=== PATIENT | male | born 1955 | race Caucasian/White ===

== ENCOUNTER 2018-08-13 01:49 | Inpatient (IN) | payer OTHER ==
[2018-08-13] VITALS (11 sets, daily range): BP systolic 118–155; BP diastolic 79–92
[~2018-08-13] VITALS: Ht 177.8 cm; Wt 79.4 kg
[~2018-08-13 01:49] MED LIST: BUPR-474 PO; CELE-1 PO; GABA-488 PO; OMEP-218 PO; OXYC-865 PO; TRAM-420 PO
[2018-08-13] MEDS ORDERED: LIDOCAINE/SOD BICARB 8.4% SYR ID ONE (12:00)
[2018-08-13] MEDS ORDERED: PREGABALIN 150 MG CAPSULE PO ONE (12:00)
[2018-08-13] MEDS ORDERED: MIDAZOLAM 2 MG/2 ML VIAL IVP PRN (12:00)
[2018-08-13] MEDS ORDERED: ACETAMINOPHEN 500 MG TAB PO ONE (12:00)
[2018-08-13] MEDS ORDERED: ceFAZolin(*) 2GM/D5W 50ML 50 ML IVPB ONE (12:00)
[2018-08-13] MEDS ORDERED: NORMOSOL R SOLN(*) 1000 ML BAG 1,000 ML IV PRN (12:00)
[2018-08-13] MEDS ORDERED: REMIFENTANIL HCL 1 MG VIAL ONE (12:39)
[2018-08-13] MEDS ORDERED: ROCURONIUM BROM 10 MG/ML 5 ML ONE (13:40)
[2018-08-13] MEDS ORDERED: DEXAMETHASONE SOD 4 MG/ML VIAL ONE (16:53)
[2018-08-13] MEDS ORDERED: PROPOFOL EMUL 10 MG/ML ONE (16:53)
[2018-08-13] MEDS ORDERED: PHENYLEPHRINE/NS/PF 0.4MG/10ML ONE (16:53)
[2018-08-13] MEDS ORDERED: ONDANSETRON 4 MG/2 ML VIAL ONE (16:53)
[2018-08-13] MEDS ORDERED: HYDROmorphone HCL 2 MG/ML SDV ONE ×2 (16:55→17:22)
[2018-08-13] MEDS ORDERED: FLUSH 10 ML SYR IVP PRN (18:40)
[2018-08-13] MEDS ORDERED: ACETAMINOPHEN 500 MG TAB PO PRN (18:40)
[2018-08-13] MEDS ORDERED: HYDROmorphone HCL 2 MG/ML SDV IVP PRN (18:40)
[2018-08-13] MEDS ORDERED: BENZOCAINE/MENTHOL 1 EACH LOZG PO PRN (18:40)
[2018-08-13] MEDS ORDERED: diphenhydrAMINE 25 MG CAP PO PRN (18:40)
[2018-08-13] MEDS ORDERED: LR(*) 1000 ML BAG 1,000 ML IV PRN (18:40)
[2018-08-13] MEDS ORDERED: ONDANSETRON 4 MG/2 ML VIAL IVP PRN (18:40)
[2018-08-13] MEDS ORDERED: BISACODYL 10 MG SUPP PR PRN (18:40)
[2018-08-13] MEDS ORDERED: MAGNESIUM HYDROXIDE* 30ML UDCP PO PRN (18:40)
[2018-08-13] MEDS ORDERED: ACETAMINOPHEN(*)1000 MG/100 ML 100 ML IVPB PRN (18:40)
[2018-08-13] MEDS ORDERED: fentaNYL CITR 100 MCG/2 ML AMP ONE (18:44)
[2018-08-13] MEDS: oxyCODONE HCL 5 MG CAP PO PRN (20:39)
[2018-08-13] MEDS ORDERED: GABA300S PO (20:46)
[2018-08-13] MEDS ORDERED: GABA-549 PO (21:09)
--- NOTE | 2018-08-13 21:15 | Hospitalist Progress Note ---
Subjective Progress Notes Subjective Patient seen post-op. Reviewed PMHx and medications. At present, he reports pain in the surgical site. He denies CP/SOB/N/V. Physical Exam Vital Signs Date Time Temp Pulse Resp B/P (MAP) Pulse Ox O2 Delivery O2 Flow Rate FiO2 08/13/18 20:27 97.8 83 18 155/92 (113) 94 Nasal Cannula 2.0 General Appearance: Alert, Awake Cardiovascular: Regular Rate and Rhythm Respiratory: Clear to Auscultation Assessment and Plan Problems: (1) GERD (gastroesophageal reflux disease) Status: Chronic Assessment & Plan: Will continue PPI therapy - Protonix while at [facility] (omeprazole not on formulary). (2) Depression Status: Chronic Assessment & Plan: Continue Wellbutrin XL 300mg daily. (3) Chronic pain Status: Chronic Assessment & Plan: He has been managed with gabapentin 600mg PO TID, but has been taking more as PRN. He wished to have this continue and more on a scheduled basis for now. SALOME DECKER MD Aug 13, 2018 21:15
[2018-08-13] MEDS ORDERED: NS(*) 0.9% 250 ML BAG 250 ML ONE (21:43)
[2018-08-13] MEDS: DOCUSATE SODIUM 100 MG CAP PO SCH (21:44)
[2018-08-13] MEDS: GABAPENTIN 300 MG CAP PO SCH (21:44)
[2018-08-13] MEDS: ceFAZolin(*) 2GM/D5W 50ML 50 ML IVPB SCH (21:45)
[2018-08-13] MEDS: APAP/HYDROCODONE 325/5 TAB PO PRN (22:00)
--- NOTE | 2018-08-13 22:57 | RADIOLOGY IMAGING REPORT ---
FACILITY: [facility] PATIENT NAME: Aki Eldridge : 1955 MR: [id number] V: [id number] EXAM DATE: [id number] ORDERING PHYSICIAN: RAJAN SHERIFF TECHNOLOGIST: Location: [facility] Patient: Aki Eldridge : 1955 Visit/Account:[id number] Date of Sevice: 08/13/2018 EXAMINATION: Intraoperative fluoroscopic images of the lumbosacral spine. HISTORY: Spondylosis. COMPARISON: Lumbar spine MRI 07/11/2018. FINDINGS: 4 fluoroscopic images of the lumbosacral spine were obtained in the OR during transforaminal lumbar i nterbody fusion. Images show placement of fusion hardware posteriorly across the L4-S1 levels, with interbody fusion d evices at L4-5 and L5-S1. 389.6 of fluoroscopy time was utilized during the procedure. Cumulative Dose DAP: 3.67 mGy*m^2 IMPRESSION: Intraprocedural images as described, please see procedure report for additional detail. Report Dictated By: Alexandre Connell MD at 08/13/2018 10:51 PM Report E-Signed By: Alexandre Connell MD at 08/13/2018 10:54 PM WSN:[id number]
[2018-08-13] MEDS: DIAZEPAM 5 MG TAB PO PRN (23:10)
[2018-08-14] VITALS (10 sets, daily range): BP systolic 93–156; BP diastolic 45–88; Ht 177.8 cm; Wt 79.4 kg
[2018-08-14] MEDS: APAP/HYDROCODONE 325/5 TAB PO PRN ×5 (02:00→20:51)
[2018-08-14] MEDS: ceFAZolin(*) 2GM/D5W 50ML 50 ML IVPB SCH ×2 (04:42→13:00)
[2018-08-14] MEDS: oxyCODONE HCL 5 MG CAP PO PRN ×2 (04:42→15:55)
[2018-08-14] MEDS: DIAZEPAM 5 MG TAB PO PRN ×2 (05:26→14:21)
[2018-08-14] MEDS: PANTOPRAZOLE SOD 40 MG TABEC PO SCH (08:28)
[2018-08-14] MEDS: GABAPENTIN 300 MG CAP PO SCH ×3 (08:28→20:27)
[2018-08-14] MEDS: buPROPion XL 150 MG TABCR PO SCH (08:28)
[2018-08-14] MEDS: DOCUSATE SODIUM 100 MG CAP PO SCH ×2 (08:29→20:51)
[2018-08-14] MEDS ORDERED: DIAZ-303 PO (08:38)
[2018-08-14] MEDS ORDERED: DOCU240C84 PO (08:38)
[2018-08-14] MEDS ORDERED: LOR5/325 PO (08:40)
--- NOTE | 2018-08-14 09:56 | Hospitalist Progress Note ---
Subjective Progress Notes Subjective He has complaints of pain to the surgery site. He had no acute events overnight. Patient Complains of: Cardiovascular: No: Chest Pain Respiratory: No: Shortness of Breath Physical Exam Vital Signs Date Time Temp Pulse Resp B/P (MAP) Pulse Ox O2 Delivery O2 Flow Rate FiO2 08/14/18 08:25 98.3 104 18 119/46 (70) 94 Nasal Cannula 1.0 Intake and Output 08/14/18 06:59 Intake Total 2910 ml Output Total 1475 ml Balance 1435 ml Intake Oral 360 ml IV Total 2550 ml Output Urine Total 1475 ml # Voids 1 General Appearance: Alert, Awake, No Acute Distress, Afebrile Neuro: No Gross deficits Cardiovascular: Regular Rate and Rhythm Respiratory: No Respiratory Distress, Clear to Auscultation Psych: Alert & Oriented X3, Appropriate Mood & Affect Assessment and Plan Problems: (1) GERD (gastroesophageal reflux disease) Status: Chronic Assessment & Plan: Will continue PPI therapy - Protonix while at [facility] (omeprazole not on formulary). (2) Depression Status: Chronic Assessment & Plan: Continue Wellbutrin XL 300mg daily. (3) Chronic pain Status: Chronic Assessment & Plan: He has been managed with gabapentin 600mg PO TID, but has been taking more as PRN. He wished to have this continue and more on a scheduled basis for now. Exam Sepsis Risk: No Definite Risk NAYANA BECERRA WEAVER AXMINSTER Aug 14, 2018 09:56
--- NOTE | 2018-08-14 10:44 | RADIOLOGY IMAGING REPORT ---
FACILITY: [facility] PATIENT NAME: Aki Eldridge : 1955 MR: [id number] V: [id number] EXAM DATE: ORDERING PHYSICIAN: RAJAN SHERIFF TECHNOLOGIST: Location: [facility] Patient: Aki Eldridge : 1955 Visit/Account:[id number] Date of Sevice: 08/14/2018 LUMBAR SPINE 2 OR 3 VIEW Indication: Back pain., post op Comparison: None available FINDINGS: There are 5 lumbar type vertebral bodies. There is no acute osseous or acute alignment abnormality. There are posterior fusion changes extending from L4 to S1. Components are well seated and well alig olivia. No abnormalities are noted. The vertebral body heights appear well-maintained. IMPRESSION: 1. Unremarkable L4-S1 posterior fusion Report Dictated By: Jeremiah Raymundo at 08/14/2018 10:33 AM Report E-Signed By: Jeremiah Raymundo at 08/14/2018 10:39 AM WSN:[id number]
[2018-08-15] MEDS: oxyCODONE HCL 5 MG CAP PO PRN (01:19)
[2018-08-15 01:20] VITALS: BP 150/88
[2018-08-15 03:31] VITALS: BP 146/87
[2018-08-15] MEDS: APAP/HYDROCODONE 325/5 TAB PO PRN ×2 (03:36→08:52)
[2018-08-15] MEDS: buPROPion XL 150 MG TABCR PO SCH (08:51)
[2018-08-15] MEDS: DIAZEPAM 5 MG TAB PO PRN (08:52)
[2018-08-15] MEDS: PANTOPRAZOLE SOD 40 MG TABEC PO SCH (08:52)
[2018-08-15] MEDS: DOCUSATE SODIUM 100 MG CAP PO SCH (08:52)
[2018-08-15] MEDS: GABAPENTIN 300 MG CAP PO SCH (08:53)
--- NOTE | 2018-08-15 09:58 | Hospitalist Progress Note ---
Subjective Progress Notes Subjective He has no complaints this morning. He had no acute events overnight. Patient Complains of: Cardiovascular: No: Chest Pain Respiratory: No: Shortness of Breath Physical Exam Vital Signs Date Time Temp Pulse Resp B/P (MAP) Pulse Ox O2 Delivery O2 Flow Rate FiO2 08/15/18 03:31 88 16 146/87 (106) 90 Room Air 08/14/18 23:37 99.0 0.5 Intake and Output 08/15/18 06:59 Intake Total 957 ml Output Total 1900 ml Balance -943 ml Intake Oral 957 ml Output Urine Total 1900 ml # Voids 5 General Appearance: Alert, Awake, No Acute Distress, Afebrile Neuro: No Gross deficits Cardiovascular: Regular Rate and Rhythm Respiratory: No Respiratory Distress, Clear to Auscultation GI: Soft and Non-Tender Psych: Alert & Oriented X3, Appropriate Mood & Affect Assessment and Plan Problems: (1) GERD (gastroesophageal reflux disease) Status: Chronic Assessment & Plan: Will continue PPI therapy - Protonix while at [facility] (omeprazole not on formulary). (2) Depression Status: Chronic Assessment & Plan: Continue Wellbutrin XL 300mg daily. (3) Chronic pain Status: Chronic Assessment & Plan: He has been managed with gabapentin 600mg PO TID, but has been taking more as PRN. He wished to have this continue and more on a scheduled basis for now. Exam Sepsis Risk: No Definite Risk NAYANA BECERRA TRADE MARK ATTORNEY Aug 15, 2018 09:57
--- NOTE | 2018-08-26 16:38 | OPERATIVE REPORT 1 ---
EVENT DATE: August 13, 2018 SURGEON: Lance Rivera MD ANESTHESIOLOGIST: Tino Kang MD ANESTHESIA: General endotracheal anesthesia. PIPE FITTER HELPER: David Carl PA-C PREOPERATIVE DIAGNOSIS Lumbar degenerative disk disease with foraminal stenosis and radiculopathy. POSTOPERATIVE DIAGNOSIS Lumbar degenerative disk disease with foraminal stenosis and radiculopathy. PROCEDURE PERFORMED L4-L5, L5-S1 minimally invasive transforaminal lumbar interbody fusion. INTRAVENOUS FLUIDS 1900 mL ESTIMATED BLOOD LOSS 40 mL IMPLANTS Pedicle screws 6.5 mm x 45 mm from [employer] times four, 6.5 mm x 40 mm pedicle screws from [employer] times two, 80 mm connecting rods times two from [employer], and locking caps from [employer] times six. Size large, 11 mm high curvilinear interbody titanium devices from [employer] times two. INDICATIONS FOR SURGERY Mr. Nelson is a 62-year-old gentleman with a long history of worsening back pain as well as right lower extremity radiating symptoms in an L4 and L5 distribution. He failed physical therapy, medications, injections, etc. His physical examination was significant for antalgic gait favoring the right, but no laurel weakness, and no areas of subjective numbness. His imaging studies showed severe degenerative disk disease at L4-L5 and L5-S1 with significant foraminal stenosis on the right side as well. Some injections gave him temporary relief only, and ultimately secondary to ongoing pain in the back as well as the right lower extremity, he was offered and elected to undergo L4-L5, L5-S1 transforaminal lumbar interbody fusion. Prior to surgery, I explained in detail to the patient the possible risks of surgery. These risks included bleeding, infection, damage to surrounding structures, persistent and/or worsening pain, nerve root injury, spinal fluid leak, meningitis, need for further surgery, , blindness, sexual dysfunction, autonomic nervous system dysfunction, as well as other unforeseen medical and surgical complications. An understanding that spinal surgery is more predictive at improving extremity discomfort than axial spine pain was stressed. DESCRIPTION OF PROCEDURE On the date of surgery, the patient was met in the preoperative hold area, and all questions were answered. His operative site was identified and marked by myself. The patient was then taken to the operating room, and after succumbing to anesthesia, was positioned in the prone position on a Nabeel table. All bony protuberances and soft tissues were well padded in the standard fashion. Care was taken to maintain appropriate perfusion pressures during anesthesia. Preoperative antibiotics were administered according to the appropriate timing schedule. At the conclusion of the procedure, sponge and needle counts were correct times two. A final timeout was undertaken by members of the operating team to confirm correct patient, correct levels, and correct surgery. Fluoroscopy was brought in, and landmarks for placement of percutaneous pedicle screws were marked on the skin. This included the midpoint of the pedicles in the axial plane as well as the lateral borders of the pedicles in the sagittal plane. Once this was complete, the patient was prepped and draped in the standard sterile orthopedic fashion. Bilateral Alanna-type incisions were made and carried down from the skin to the muscle fascia. The muscle fascia was split, and finger dissection was used between the multifidus and longissimus muscles to come down upon the spine and palpate the starting points for pedicle screws at L4, L5, and S1. Fluoroscopy was then brought into the field, and we used Jamshidi needles to cannulate the pedicles bilaterally at L4, L5, and S1. This was accomplished on the right side by docking the Jamshidi needle at the 3 o'clock position on the pedicle on a perfect AP of that particular vertebral body. On the left, the docking point was at the 9 o'clock position. Under fluoroscopic guidance, the Jamshidi needles were advanced through the pedicles, and guidewires were placed. On the right side, we placed taps with appropriate length retractor blades, while on the left side, we actually placed screws with the extended taps. On the right side once we had placed the taps and retractor blades at the L4-L5 level, the retractor was attached, and the disk space was distracted. From the lateral view, we were able to then perform a facetectomy of the L4-L5 facet, exposing the disk space of L4-L5. An annulotomy knife was then used to perform an annulotomy, and then a combination of pituitary rongeurs, janak, and curettes was used to perform a diskectomy at L4-L5. A trial implant was then placed and found to be in good position on AP and lateral views. We selected the appropriate size interbody device, and that was packed with demineralized bone matrix and local bone. This was tapped into the interbody space and then rotated into appropriate position using both AP and lateral fluoroscopy. We then turned our attention to the L5-S1 level, and again after distracting the level with the retractor blades and placing the retractor, a facetectomy was performed. The disk space was identified. An annulotomy was created, and diskectomy was performed in the same manner as described for L4-L5. A second interbody device was selected and placed, and imaging studies showed excellent positioning. Retractor blades were removed, and wires were used to replace the taps at L4, L5, and S1 on the right with appropriate length screws. Once this was complete, we measured for the appropriate length of connecting rods, and connecting rods were then placed in a minimally invasive fashion. Locking caps were placed in all pedicle screws, securing the rods into the tulips. Breakoff device was then used to snap off the extended taps of all screws after final tightening had been accomplished. Final AP and lateral x-rays showed excellent placement of the interbody devices as well as the pedicle screws. The wounds were then irrigated with copious sterile saline solution and then closed in layers using interrupted sutures for the deep fascia, inverted interrupted sutures for the subcutaneous tissue, and a running subcuticular skin stitch. Sponge and needle counts were correct times two. POSTOPERATIVE CARE PLAN The patient will remain in the hospital until he meets discharge criteria. He will be discharged home with instructions to follow up in two weeks' time. SHANICE
== END 2018-08-15 10:30 | disposition home or self-care (01) | DRG 460 ==
LOC: OR 01:49 → OBSVTOIN 20:05 → INTOOBSV 20:05 → MED 20:05
PROVIDERS: ADMIT Orthopaedic Surgery; ATTEND Orthopaedic Surgery
PROC: 0SG30AJ Fusion of Lumbosacral Joint with Interbody Fusion Device, Posterior Approach, Anterior Column, Open Approach (ICD-10-PCS; 2018-08-13)
PROC: 0SB20ZZ Excision of Lumbar Vertebral Disc, Open Approach (ICD-10-PCS; 2018-08-13)
PROC: 0SB40ZZ Excision of Lumbosacral Disc, Open Approach (ICD-10-PCS; 2018-08-13)
PROC: 01NB0ZZ Release Lumbar Nerve, Open Approach (ICD-10-PCS; 2018-08-13)
PROC: 0SG00AJ Fusion of Lumbar Vertebral Joint with Interbody Fusion Device, Posterior Approach, Anterior Column, Open Approach (ICD-10-PCS; principal; 2018-08-13 13:32)
DX: M51.16 Intervertebral disc disorders with radiculopathy, lumbar region (principal); M48.061 Spinal stenosis, lumbar region without neurogenic claudication; M51.17 Intervertebral disc disorders with radiculopathy, lumbosacral region; M48.07 Spinal stenosis, lumbosacral region; K21.9 Gastro-esophageal reflux disease without esophagitis; F32.9 Major depressive disorder, single episode, unspecified; G89.29 Other chronic pain; Z90.49 Acquired absence of other specified parts of digestive tract
CPT/HCPCS: 36415; 72100; 76000; 86850; 86900; 86901; 97161; C1713; J0690; J1100; J1170; J2250; J2370; J2405; J2704; J3010; J7050